=== PATIENT | male | born 1960 | race Caucasian/White ===

== ENCOUNTER 2016-12-08 15:47 | Emergency (ER) | payer BC ==
[2016-12-08] MEDS ORDERED: cloNIDine 0.1 MG TAB ONE (19:36)
[2016-12-08] MEDS ORDERED: Meclizine HCl 25 MG TAB ONE (21:18)
== END 2016-12-08 21:33 | disposition home or self-care (01) ==
LOC: ER 15:47
DX: H81.393 Other peripheral vertigo, bilateral (principal); H81.13 Benign paroxysmal vertigo, bilateral; I10 Essential (primary) hypertension; Z91.14 Patient's other noncompliance with medication regimen; F17.200 Nicotine dependence, unspecified, uncomplicated
CPT/HCPCS: 36415; 70450; 71010; 80053; 80307; 81003; 82553; 84484; 85025; 85610; 85730; 93005